=== PATIENT | female | born 1950 | race Two or more races ===

== ENCOUNTER 2016-09-24 07:12 | Day surgery (SDC) | payer BC, OTHER ==
[2016-09-22 14:30] VITALS: BMI 32.8
[2016-09-23] MEDS: oxyCODONE HCL 5 MG TABLET PO PRN (18:00)
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
--- NOTE | 2016-09-24 08:35 | HP ---
History & Physical Update - History History: No Change - Physical Physical: No Change - Assessment Assessment: No Change - Plan Plan: No Change (Patient took her Metoprolol at 6:30AM. This is my first time meeting the patient. I informed her that I will be helping Dr. Fontana today for the surgical procedure.)
[2016-09-24] MEDS ORDERED: MIDAZOLAM HCL 2 MG/2 ML SINGLE DOSE VIAL ONE ×2 (09:56)
[2016-09-24] MEDS ORDERED: DEXAMETHASONE SOD PHOSPHATE 4 MG/1 ML VIAL ONE (10:22)
[2016-09-24] MEDS ORDERED: ONDANSETRON 4 MG/2 ML VIAL IVPUSH PRN (11:54)
[2016-09-24] MEDS ORDERED: LACTATED RINGERS SOLUTION 1,000 ML IV SCH (12:00)
--- NOTE | 2016-09-24 12:31 | OP ---
Operative Note - Note: Operative Date: 09/24/16 ([id number]) Pre-Operative Diagnosis: thyroid nodules Operation: right thyroid lobectomy and isthmusectomy, with nerve monitoring Findings: large thyroid nodules right lobe and isthmus right recurrent laryngeal nerve and superior laryngeal nerve identified and preserved right superior and inferior parathyroid tissue preserved Post-Operative Diagnosis: Same as Pre-op Surgeon: Emery Fontana Information Resource Consultant: Figueroa Pate Anesthesiologist/ENVIRONMENTAL HEALTH AIDE: Shila Cisneros Anesthesia: General Specimens Removed: right thyroid lobe and isthmus Estimated Blood Loss (mls): 15 Drains & Tubes with Location: none Blood Volume Replaced (mls): 0 Operative Report Dictated: Yes
[2016-09-24] MEDS ORDERED: HYDROmorphone HCL CARPU-JECT 2 MG/1 ML DISP.SYRIN ONE (13:10)
[2016-09-24] MEDS: HYDROmorphone HCL CARPU-JECT 1 MG/1 ML DISP.SYRIN IVPUSH PRN ×3 (13:10→18:50)
--- NOTE | 2016-09-24 17:21 | SURG ---
Surgery Morphology Teacher Note Morphology Teacher: Figueroa Pate PA-C Date of Service: 09/24/16 Diagnosis: right thyroid mass Procedure: right thyroid mass lobectomy and isthmusectomy, with nerve monitoring I was present for the entirety of the operative procedure. For further detail, please refer to operative report. Visit type - Case Type Case Type: Scheduled Admission - New patient This patient is new to me today: Yes Date on this admission: 09/24/16
--- NOTE | 2016-09-24 17:27 | CONSULT ---
[id number] management of chronic medical illness. HISTORY OF PRESENT ILLNESS: This is a 66 year old female with a history of HTN , NIDDM, osteoporosis, hysterectomy, thyroid nodules, and dysphagia POD #0 s/p right thyroid lobectomy and isthmusectomy. REVIEW OF SYSTEMS: CONSTITUTIONAL: Absent: fever, chills, diaphoresis, generalized weakness, malaise, loss of appetite, weight change HEENT: Absent: rhinorrhea, nasal congestion, throat pain, throat swelling, difficulty swallowing, mouth swelling, ear pain, eye pain, visual changes CARDIOVASCULAR: Absent: chest pain, syncope, palpitations, irregular heart rate, lightheadedness , peripheral edema RESPIRATORY: Absent: cough, shortness of breath, dyspnea with exertion, orthopnea, wheezing, stridor, hemoptysis GASTROINTESTINAL: Absent: abdominal pain, abdominal distension, nausea, vomiting, diarrhea, constipation, melena, hematochezia GENITOURINARY: Absent: dysuria, frequency, urgency, hesitancy, hematuria, flank pain, genital pain MUSCULOSKELETAL: Absent: myalgia, arthralgia, joint swelling, back pain, neck pain SKIN: Absent: rash, itching, pallor HEMATOLOGIC/IMMUNOLOGIC: Absent: easy bleeding, easy bruising, lymphadenopathy, frequent infections ENDOCRINE: Absent: unexplained weight gain, unexplained weight loss, heat intolerance, cold intolerance NEUROLOGIC: Absent: headache, focal weakness or paresthesias, dizziness, unsteady gait, seizure, mental status changes, bladder or bowel incontinence PSYCHIATRIC: Absent: anxiety, depression, suicidal or homicidal ideation, hallucinations. PHYSICAL EXAMINATION Vital Signs - 24 hr 09/24/16 09/24/16 09/24/16 07:59 12:28 12:45 Temperature 97.6 F 98.9 F Pulse Rate 62 95 H 97 H Respiratory 18 18 16 Rate Blood Pressure 132/74 154/82 148/82 O2 Sat by Pulse 99 100 Oximetry (%) 09/24/16 09/24/16 09/24/16 13:00 13:15 13:30 Temperature Pulse Rate 83 81 80 Respiratory 16 15 12 Rate Blood Pressure 159/88 154/82 150/72 O2 Sat by Pulse 100 100 100 Oximetry (%) 09/24/16 09/24/16 09/24/16 13:45 14:00 14:15 Temperature Pulse Rate 77 78 76 Respiratory 12 14 10 L Rate Blood Pressure 145/76 148/80 151/80 O2 Sat by Pulse 100 100 99 Oximetry (%) 09/24/16 09/24/16 09/24/16 14:30 14:45 15:00 Temperature Pulse Rate 80 76 79 Respiratory 13 18 12 Rate Blood Pressure 139/83 140/80 138/72 O2 Sat by Pulse 98 98 98 Oximetry (%) 09/24/16 15:15 Temperature Pulse Rate 80 Respiratory 16 Rate Blood Pressure 136/79 O2 Sat by Pulse 99 Oximetry (%) GENERAL: Awake, alert, and fully oriented, in no acute distress. HEAD: Normal with no signs of trauma. EYES: Pupils equal, round and reactive to light, extraocular movements intact, sclera anicteric, conjunctiva clear. No lid lag. EARS, NOSE, THROAT: Ears normal, nares patent, oropharynx clear without exudates. Moist mucous membranes. NECK: Normal range of motion, supple without lymphadenopathy, JVD, or masses. LUNGS: Breath sounds equal, clear to auscultation bilaterally. No wheezes, and no crackles. No accessory muscle use. HEART: Regular rate and rhythm, normal S1 and S2 without murmur, rub or gallop. ABDOMEN: Soft, nontender, not distended, normoactive bowel sounds, no guarding, no rebound, no masses. No hepatomegaly or splenomegaly. MUSCULOSKELETAL: Normal range of motion at all joints. No bony deformities or tenderness. No CVA tenderness. UPPER EXTREMITIES: 2+ pulses, warm, well-perfused. No cyanosis. No clubbing. Cap refill <2 seconds. No peripheral edema. LOWER EXTREMITIES: 2+ pulses, warm, well-perfused. No calf tenderness. No peripheral edema. NEUROLOGICAL: Cranial nerves II-XII intact. Normal speech. Normal gait. PSYCHIATRIC: Cooperative. Good eye contact. Appropriate mood and affect. SKIN: Warm, dry, normal turgor, no rashes or lesions noted. Laboratory Results - last 24 hr 09/24/16 09/24/16 07:50 15:47 POC Glucometer 116 139 Active Medications Generic Name Dose Route Start Last Admin Trade Name Freq PRN Reason Stop Dose Admin Hydromorphone HCl 0.5 mg 09/24/16 11:54 09/24/16 13:50 Dilaudid Injection - IVPUSH 09/27/16 11:55 0.5 mg [id number] PRN Administration PAIN Lactated Ringer's 1,000 mls @ 125 mls/hr 09/24/16 12:00 Lactated Ringers Solution IV ASDIR NIRU Ondansetron HCl 4 mg 09/24/16 11:54 Zofran Injection IVPUSH 09/24/16 17:55 Q6H PRN NAUSEA AND/OR VOMITING Oxycodone HCl 5 mg 09/24/16 12:20 Roxicodone - PO Q4H PRN PAIN ASSESSMENT/PLAN: 66 year old female s/p partial thyroidectomy. 1. HTN -BPs 130s systolic -Continue Norvasc 2. Pre-diabetes -FSBG 116-139 -Re-start Metformin when diet resumed 3. Hypothyroidism -Continue Synthroid 4. S/p partial thyroidectomy -Surgery following -Swallowing well; start clears 5. Chronic back pain -Hold Tramadol while on oxycodone post-op 6. Ppx -Early ambulation Dispo: We will continue to follow the patient. Thank you for this consultative opportunity. Visit type - Emergency Visit Emergency Visit: No - New Patient This patient is new to me today: Yes Date on this admission: 10/26/16 - Critical Care Critical Care patient: No
--- NOTE | 2016-09-24 19:46 | PN ---
Progress Note (short form) - Note Progress Note: ENT postop check s/p right thyroid lobectomy and isthmusectomy doing well, slight pain has been OOB to bathroom, voice clear (using cell phone!) drinking liquids but no solids yet no nausea Medical consultation reviewed and appreciated VSS NAD dressing dry and intact voice clear and strong no stridor or respiratoyr distress Data serum calcium 9.0 Impression stable s/p right thyroid lobectomy and isthmusectomy for thyroid nodules Plan continue postop care recheck calcium in AM may change to dry sterile dressing in AM (folded 4x4 ok) if meets discharge criteria then home in AM outpatient follow-up scheduled in office for suture removal.
[2016-09-24] MEDS: METOPROLOL TARTRATE 50 MG TABLET (FP) PO SCH (21:56)
[2016-09-24] MEDS ORDERED: metFORMIN HCL 500 MG TABLET (FP) PO SCH (22:00)
[2016-09-24] MEDS ORDERED: ATORVASTATIN CA 10 MG TABLET (FP) PO SCH (22:00)
--- NOTE | 2016-09-24 23:31 | OP ---
DATE OF OPERATION: 09/24/2016 PREOPERATIVE DIAGNOSIS: Thyroid nodules. POSTOPERATIVE DIAGNOSIS: Thyroid nodules. PROCEDURE: Right thyroid lobectomy and isthmusectomy using nerve monitoring. SURGEON: Emery Fontana M.D. PLUG GROWER: Mary Jo Crocker ANESTHESIOLOGIST: Shila Cisneros M.D. ANESTHESIA: General via endotracheal tube. INDICATION: This 66-year-old female has had thyroid nodules which are now causing pressure symptoms. Fine needle aspiration biopsy last year demonstrated the largest right thyroid nodule to be benign. She is now presented for treatment. FINDINGS: Large right thyroid nodule, medium isthmus nodule. PROCEDURE: Patient is brought to the operating room and placed on the operating room in supine position. General endotracheal anesthesia was induced to satisfactory level. She was prepped and draped in the usual fashion for surgery. The Nerveana nerve monitor was used throughout the case including electrodes on the endotracheal tube. Shoulder roll was placed. The neck was extended. Transverse incision was created within a natural occurring skin fold and brought down to skin and subcutaneous tissue. Hemostasis was achieved with electrocautery. The platysma muscle was incised. A large anterior jugular veins were identified and preserved. The midline was incised, and the strap muscles were and retracted. The large thyroid isthmus nodule is identified. The left thyroid lobe was palpated, and there was no significant nodule. The right thyroid lobe was palpated, and the significant known nodule was palpated. The right thyroid lobe was then dissected, strap muscles were anteriorly and laterally. The inferior pole vessels were identified and then divided upon the capsule with a Ligasure. The middle thyroid vein was likewise divided. The right recurrent laryngeal nerve was identified visually and electrically and preserved throughout the case. Tissue consistent with right inferior parathyroid tissue was identified and preserved. The isthmus nodule was from the left thyroid lobe upon the anterior surface of the trachea. Additional dissection started to reflect the isthmus toward the right side. Dissection of superior pole was then performed. The superior laryngeal nerve was identified both visually and electrically. This was also preserved throughout the case. Superior pole vessels were then isolated, divided, and ligated. A remnant of the superior pole was left, and the thyroid lobe was transected just below the superior pole. Additional dissection rolling the gland from lateral to medial divided Hanson's ligament and again preserved the right recurrent laryngeal nerve. Tissue consistent with right superior parathyroid tissue was left in its [place] site. The final attachments of the trachea were divided, and the right thyroid lobe and isthmus were removed from the field, sent to pathology for routine studies. The wound was irrigated. Minimal oozing was noted, controlled with bipolar cauterization. The wound was then closed in layers utilizing interrupted absorbable sutures for the strap muscles and platysma, and a running subcuticular suture of 5-0 Prolene was then placed. The skin was then cleaned, prepped with benzoin, and overlapping Steri-Strips were applied. A dry, sterile dressing was placed. Patient tolerated procedure well. She was then awakened from general anesthesia , transferred to PACU in stable condition. Estimated blood loss was 15 mL. The right thyroid lobe and isthmus was sent to pathology for routine studies. There were no complications. EMERY FONTANA M.D. LAURIE/[id number] MTDD
[2016-09-25] MEDS: oxyCODONE HCL 5 MG TABLET PO PRN (05:10)
[2016-09-25 06:07] VITALS: BP 143/79
[2016-09-25] MEDS ORDERED: LEVOTHYROXINE NA 25 MCG TABLET (FP) PO SCH (07:00)
[2016-09-25 07:53] LABS: BASOPHIL 0.1 % (0-2.0); MCHC 33.5 g/dl (32.0-36.0); MEAN CELL VOLUME 89.6 fl (80-96); MEAN PLT VOLUME 8.4 fl (7.5-11.1); NEUTROPHILS 72.2 % (42.8-82.8); PLATELET COUNT 207 K/MM3 (134-434); RDW 15.1 % (11.6-15.6); WHITE BLOOD COUNT 6.6 K/mm3 (4.0-10.0)
[2016-09-25 08:28] LABS: CALCIUM 8.9 mg/dL (8.5-10.1)
[2016-09-25 08:29] LABS: COCKROFT - GAULT 74.2985
[2016-09-25] MEDS ORDERED: amLODIPine BESYLATE 5 MG TABLET (FP) PO SCH (10:00)
[2016-09-25] MEDS: METOPROLOL TARTRATE 50 MG TABLET (FP) PO SCH (10:21)
--- NOTE | 2016-09-25 12:25 | PATH ---
Surgical Pathology Report Patient Name: JENNIFER FALCON Med. Rec. #: [id number] /Age/Gender: 1950 (Age: 66) / F Account: [id number] Location: [address] [place] [address]/[facility] Taken: 09/24/2016 Received: 09/24/2016 Reported: 09/25/2016 Physicians: Emery Fontana M.D. Specimen(s) Received RIGHT THYROID & ISTHMUS Clinical History Thyroid mass Final Diagnosis THYROID GLAND, RIGHT LOBE AND ISTHMUS, LOBECTOMY: BENIGN MULTINODULAR HYPERPLASIA WITH DEGENERATIVE CHANGE. PATCHY MINIMAL LYMPHOCYTIC THYROIDITIS. ONE BENIGN LYMPH NODE. PARATHYROID TISSUE PRESENT (x1). Electronically Signed Flo Davidson M.D. Gross Description Received in formalin labeled "right thyroid and isthmus" is an 11 g, 3.8 x 3.5 x 1.4 cm portion of thyroid. The outer capsule is red-brown and intact. Sectioning reveals multiple heterogeneous, focally hemorrhagic colloid nodules. The remaining thyroid parenchyma is red-brown and beefy. The specimen is entirely and sequentially submitted in 9 cassettes. /09/24/2016 saudi/09/24/2016
[2016-09-25 13:08] VITALS: PULSE 67; TEMP 98.1
--- NOTE | 2016-09-25 14:09 | PN ---
Physical Exam: SUBJECTIVE: Patient seen and examined. She denies dysphagia, n/v, sob, fever, chills. She is tolerating diet well. Pain is minimal. OBJECTIVE: Vital Signs Period Temp Pulse Resp BP Sys/Jaffe Pulse Ox Last 24 Hr 97.5 F-99.2 F 57-104 10-20 110-151/6-83 97-99 PE Neuro: alert, awake, cn 2-12intact HEENT: throat dressing CDI with sutures and steri strips Pulm: CTAB CV: s1 s2 rrr no mrg Abd: s nt nd + bs Ext: Warm, no le edema Laboratory Results - last 24 hr 09/24/16 09/24/16 09/25/16 15:47 18:00 05:15 WBC RBC Hgb Hct MCV MCHC RDW Plt Count MPV Neutrophils % Lymphocytes % Monocytes % Eosinophils % Basophils % Sodium Potassium Chloride Carbon Dioxide Anion Gap BUN Creatinine POC Glucometer 139 124 Random Glucose Calcium 9.0 09/25/16 09/25/16 05:38 05:38 WBC 6.6 RBC 4.22 Hgb 12.6 Hct 37.8 MCV 89.6 MCHC 33.5 RDW 15.1 Plt Count 207 MPV 8.4 Neutrophils % 72.2 Lymphocytes % 22.8 Monocytes % 4.9 Eosinophils % 0.0 Basophils % 0.1 Sodium 139 Potassium 4.2 Chloride 100 Carbon Dioxide 30 Anion Gap 9 BUN 12 Creatinine 1.0 POC Glucometer Random Glucose 131 H Calcium 8.9 Assessment: 66 year old female with a history of HTN, NIDDM, osteoporosis, hysterectomy, thyroid nodules, and dysphagia admitted s/p right thyroid lobectomy and isthmusectomy 09/24/16 for observation. Plan: 1. s/p right thyroid lobectomy and isthmusectomy - Dressing changed today, no signs of bleeding - Tolerating diet - Tylenol prn pain - Follow up with Dr. Fontana as outpt for suture removal - Ca wnl 2. HTN - BP stable - Continue Norvasc daily 3. Pre-diabetes - AM sugar stable - Restart metformin 4. Hypothyroidism - Continue Synthroid 5. Chronic back pain - Resume home tramadol Dispo: - Discussed above with patient and daughter at bedside, no further questions, stated understanding. Will sign off, thank you for this consultation. Visit type - Emergency Visit Emergency Visit: Yes Care time: The patient presented to the Emergency Department on the above date and was hospitalized for further evaluation of their emergent condition. - New Patient This patient is new to me today: Yes Date on this admission: 09/25/16 - Critical Care Critical Care patient: No
== END 2016-09-25 11:50 | disposition home or self-care (01) ==
LOC: JASUSAT 07:12 → J6S 16:46 → JASUSAT 09-25 11:50
PROVIDERS: ATTEND Otolaryngology
PROC: 0GTH0ZZ Resection of Right Thyroid Gland Lobe, Open Approach (ICD-10-PCS; principal; 2016-09-24 09:00)
DX: E04.2 Nontoxic multinodular goiter (principal)
CPT/HCPCS: 36415; 80048; 82310; 85025; 88307-TC; 94760